=== PATIENT | male | born 1945 | race Caucasian/White ===

== ENCOUNTER → 2018-10-11 12:59 | Outpatient (REF) | payer MEDICARE, OTHER, SELFPAY ==
[2018-10-11 13:12] LABS: Hematocrit 29.4 % (41-53); Hemoglobin 9.9 g/dL (13.5-17.5); Mean Corpuscular HGB Conc 33.7 % (30-36); Mean Corpuscular Hemoglobin 30.6 PG (26-34); Mean Corpuscular Volume 90.7 fL (80-100); Platelet Count 189 X10^3/uL (150-400); Red Blood Cell Count 3.24 X10^6/uL (4.5-5.9); White Blood Cell Count 7.3 X10^3/uL (4.5-11.0)
[2018-10-11 13:13] LABS: Add Manual Diff / Slide Review YES
[2018-10-11 13:19] LABS: BUN Creatinine Ratio 13.8 (6-22); Blood Urea Nitrogen 11 mg/dL (9-20); Carbon Dioxide 23 mmol/L (22-32); Chloride 101 mmol/L (98-107); Estimated Glomerular Filt Rate > 60.0 mL/min (>60); Glucose 103 mg/dL (80-110); HEMOLYSIS < 15 (0-50); Potassium 4.6 mmol/L (3.4-5.1); Sodium 134 mmol/L (137-145)
[2018-10-11 14:15] LABS: Neutrophils Absolute Manual 2993 /uL (3000-5900); RBC Morphology Normal Morphology; Total Cells Counted 100
== END ==
LOC: LAB 12:59
PROVIDERS: Family Provider Internal Medicine; Visit Provider Internal Medicine
DX: I10 Essential (primary) hypertension (principal); R60.9 Edema, unspecified; R06.00 Dyspnea, unspecified
CPT/HCPCS: 80048; 83880; 85025

== ENCOUNTER → 2018-10-20 07:49 | Outpatient (CLI) | payer MEDICARE, OTHER, SELFPAY ==
--- NOTE | 2018-10-20 | DI.ECHO.S_ITS ---
[facility] +---------+ : : [address] : [place] : : : : [id number] : : : : Phone: [phone]---------+ Echocardiogram Report + + :Name: BREANA BORREGO Study Date: 10/20/2018 Height: 67 in : :[facility] Weight: 170 lb : : Gender: Male BSA: 1.9 m2 : :: 1945 Age: 73 yrs BP: 138/70 mmHg: :Reason For Study: SOB : : Performed By: Renee Thomson : :Referring: THANH MANZO : + + Interpretation Summary The ejection fraction is estimated to be 60-65%. The left atrium is severely dilated. The right atrium is mild to moderately dilated. There is mild mitral regurgitation. There is mild to moderate aortic regurgitation. There is moderate tricuspid regurgitation. The right ventricular systolic pressure is estimated to be at least 57 mmHg based on an estimated right atrial pressure of 3 mm Hg. Procedure: A two-dimensional transthoracic echocardiogram with color flow and Doppler was performed. The study quality was technically adequate. Most of the acoustic windows were suboptimal, but the best imaging was obtained from the subcostal window. The patient was in normal sinus rhythm during the exam. Left Ventricle: The left ventricle is normal in size, wall thickness, and systolic function without any focal wall motion abnormalities. The ejection fraction is estimated to be 60-65%. Left ventricular wall motion is normal. Diastolic parameters suggest probable normal left ventricular diastolic function and normal filling pressures. Right Ventricle: The right ventricle grossly appears normal in size with probable normal systolic function. Atria: The left atrium is severely dilated. The right atrium is mild to moderately dilated. The interatrial septum is intact with no evidence for an atrial septal defect. Mitral Valve: The mitral valve is grossly normal. There is mild mitral regurgitation. Aortic Valve: The aortic valve opens well. There is mild to moderate aortic regurgitation. Tricuspid Valve: The tricuspid valve leaflets are thin and pliable. There is moderate tricuspid regurgitation. The right ventricular systolic pressure is estimated to be at least 57 mmHg based on an estimated right atrial pressure of 3 mm Hg. Pulmonic Valve: The pulmonic valve is normal in structure and function. There is no pulmonic valvular regurgitation. Great Vessels: The aortic root is normal size. The dimensions of the ascending aorta are normal. The aortic arch is normal in size. The IVC is of normal diameter and collapses greater than 50% with a sniff. This suggests a low right atrial pressure of 3 mm Hg. Pericardium/ Pleura There is no pericardial effusion. There is a moderate right-sided pleural effusion. MMode/2D Measurements & Calculations LVIDd: 5.2 cm Ao root diam: 3.2 cm LVIDs: 3.4 cm Aortic Jxn: 2.9 cm FS: 34.2 % asc Aorta Diam: 3.4 cm EPSS: 0.34 cm Ao Arch Diam (Prox Trans): 2.7 cm IVSd: 0.76 cm LVPWd: 0.78 cm LV galan. diameter/BSA (cm/m^2): 2.7 LV sys. diameter/BSA (cm/m^2): 1.8 LA dimension: 4.7 cm RA long axis: 6.6 cm LA A2 area: 31.2 cm2 RA area: 24.3 cm2 LA A4 area: 29.4 cm2 RA vol: 75.5 ml LA length (vol): 6.8 cm RA : 40.0 ml/m2 LA vol: 113.8 ml IVC diam: 2.0 cm LA vol index: 60.3 ml/m2 RVDd major: 6.9 cm RVD1 (basal): 3.5 cm RVD2 (mid): 2.8 cm Doppler Measurements & Calculations Ao V2 max: 167.4 cm/sec AI P1/2t: 524.3 msec Ao V2 mean: 95.4 cm/sec AI dec slope: 267.4 cm/sec2 Ao max P.2 mmHg Ao mean P.5 mmHg Ao V2 VTI: 34.9 cm MV E max shahid: 96.8 cm/sec TR max shahid: 368.0 cm/sec MV A max shahid: 62.0 cm/sec TR max P.2 mmHg MV E/A: 1.6 PA V2 max: 84.0 cm/sec Med Peak E' Shahid: 7.7 cm/sec PA V2 mean: 55.3 cm/sec E/E' med: 12.6 PA mean P.4 mmHg Lat Peak E' Shahid: 7.8 cm/sec PA Accel Time: 0.12 sec E/E' lat: 12.4 E/e' average: 12.5 MV dec time: 0.23 sec MV P1/2t: 64.3 msec MV P1/2t max shahid: 94.7 cm/sec MVA(P1/2t): 3.4 cm2 Reading Physician:10:58 AM
== END ==
PROVIDERS: PCP Internal Medicine; Visit Provider Internal Medicine
DX: I08.3 Combined rheumatic disorders of mitral, aortic and tricuspid valves (principal); J90 Pleural effusion, not elsewhere classified; R06.02 Shortness of breath
CPT/HCPCS: 93306

== ENCOUNTER → 2018-11-04 14:40 | Outpatient (REF) | payer MEDICARE, OTHER, SELFPAY ==
[2018-11-04 15:29] LABS: BUN Creatinine Ratio 23.3 (6-22); Blood Urea Nitrogen 21 mg/dL (9-20); Calcium 8.5 mg/dL (8.4-10.2); Carbon Dioxide 25 mmol/L (22-32); Chloride 101 mmol/L (98-107); Estimated Glomerular Filt Rate > 60.0 mL/min (>60); Glucose 100 mg/dL (80-110); HEMOLYSIS < 15 (0-50); Potassium 4.8 mmol/L (3.4-5.1); Sodium 135 mmol/L (137-145)
[2018-11-04 15:53] LABS: B Type Natriuretic Peptide 359 (<100)
== END ==
LOC: LAB 14:40
PROVIDERS: PCP Internal Medicine; Visit Provider Internal Medicine
DX: R60.9 Edema, unspecified (principal); I10 Essential (primary) hypertension; R06.00 Dyspnea, unspecified
CPT/HCPCS: 80048; 83880

== ENCOUNTER → 2019-02-23 12:01 | Outpatient (CLI) | payer MEDICARE, SELFPAY ==
--- NOTE | 2019-02-23 | DI.RAD.S_ITS ---
PROCEDURE: XR CHEST 2V INDICATIONS: CHF/DYSPNEA TECHNIQUE: 2 views of the chest were acquired. COMPARISON: None. FINDINGS: Surgical changes and devices: None. Lungs and pleura: Small bilateral pleural effusions with adjacent atelectasis, right greater left. No pneumothorax. Diffuse widespread groundglass opacities with possible Leatha B-lines projecting in the lower lobes Mediastinum: Mediastinal contours are normal. Heart size is normal. Bones and chest wall: No suspicious bony abnormalities. Soft tissues appear unremarkable. IMPRESSION: Pulmonary edema and small bilateral pleural effusions, right greater than left. Dictated by: Gilbert Palomino M.D. on 02/23/2019 at 13:57 Approved by: Gilbert Palomino M.D. on 02/23/2019 at 13:58
== END ==
PROVIDERS: PCP Internal Medicine; Visit Provider Internal Medicine
DX: I50.9 Heart failure, unspecified (principal); R06.00 Dyspnea, unspecified; J81.1 Chronic pulmonary edema; J90 Pleural effusion, not elsewhere classified
CPT/HCPCS: 71046